=== PATIENT | female | born 1960 | race Two or more races ===

== ENCOUNTER 2024-08-13 23:44 | Emergency (ER) | payer OTHER ==
[~2024-08-13] VITALS: Ht 162.6 cm; Wt 117.9 kg
[~2024-08-13 23:44] MED LIST: GAS RELIEF125 M1 PO; JENTADUETO 2.51 EAC1 PO; JENTADUETO 2.51 EAC2; LOSARTAN-HCTZ1 EAC1 PO; NEURONTIN300 MG PO; OMEPRAZOLE20 MG PO; TARKA ER 2-2401 EACH; TARKA ER 2-2401 EACH PO; TOPROL XL50 M1; TOPROL XL50 M1 PO; TYLENOL ARTHRI650 MG PO; VITAMIN D10000 UNIT PO
[2024-08-13] MEDS ORDERED: NORVASC5 MG (23:48)
[2024-08-14] MEDS ORDERED: FAMOTIDINE/PF 20 MG/2 ML VIAL IV PUSH STA (00:37)
[2024-08-14] MEDS ORDERED: PROMETHAZINE HCL 50 MG/ML AMPUL IM STA (00:37)
[2024-08-14] MEDS ORDERED: 0.9 % SODIUM CHLORIDE 1,000 ML IV ONE (00:45)
[2024-08-14 01:18] LABS: HEMATOCRIT 40.3 % (36.0-45.00); HEMOGLOBIN 13.3 g/dL (12.0-15.00); MEAN CELL VOLUME 81.9 fL (80.00-100.00); PLATELET COUNT 253 K/uL (150-450); RED BLOOD COUNT 4.92 M/uL (4.00-6.00); RED CELL DISTRIBUTION WIDTH 15.1 % (11.5-14.5)
[2024-08-14 02:28] LABS: PH,URINE 5.5 (5.0-8.0); URINE APPEARANCE Clear; URINE BILIRRUBIN Negative (NEGATIVE); URINE BLOOD Negative; URINE COLOR Yellow; URINE GLUCOSE Negative (NEGATIVE); URINE KETONE Negative (NEGATIVE); URINE LEUKOCYTE Negative; URINE NITRATE Negative; URINE PROTEIN Negative (NEGATIVE); URINE UROBILINOGEN 0.2 E.U./dl
[2024-08-14 02:31] LABS: URINE EPITHELIAL CELLS 1.5 uL (0.0-38.8); URINE WBC 9.6 uL (0.0-23.2)
[2024-08-14 02:37] LABS: ALBUMIN 3.5 gm/dL (3.4-5.0); ALKALINE PHOSPHATASE 94 U/L (50-136); ALT/SGPT 24 U/L (12-78); AMYLASE 52 U/L (25-115); ANION GAP 11 (10.0-20.0); AST/SGOT 16 U/L (15-37); BILIRUBIN TOTAL 0.22 mg/dL (0.3-1.2); BILIRUBIN,CONJUGATED < 0.10 mg/dL (0.0-0.2); BILIRUBIN,UNCONJUGATED 0.12 mg/dL (0.0-0.6); BLOOD UREA NITROGEN 23 mg/dL (7-18); BUN CREA RATIO 26 (7.0-25.0); CALCIUM 9.5 mg/dL (8.5-10.1); CARBON DIOXIDE 26 mEq/L (21-32); CHLORIDE 109 mmol/L (98-107); CREATININE SERUM 0.87 mg/dL (0.55-1.02); GFR 65.97; GLOBULINA 3.8 G/DL (2.4-3.5); GLUCOSE FASTING 176 mg/dL (65-100); OSMOLALITY SERUM 291 MOSM/KG (275-295); POTASSIUM 4.19 mEq/L (3.5-5.1); SODIUM 142 mmol/L (136-145); TOTAL PROTEIN 7.3 gm/dL (6.4-8.2)
[2024-08-14 02:38] LABS: URINE BACTERIA 2.5 uL (0.0-1933); URINE CAST 0.15 uL (0.0-1.40); URINE RBC 1.5 uL (0.0-20.8)
[2024-08-14 02:44] LABS: LIPASE 52 U/L (13-75)
[2024-08-14 02:46] LABS: INR 0.95; PARTIAL THROMBOPLASTIN TIME 23.4 SECONDS (22.0-34.0); PROTHROMBIN TIME 9.9 SECONDS (9.0-11.5)
[2024-08-14] MEDS ORDERED: ZOFRAN8 MG PO (04:35)
[2024-08-14] MEDS ORDERED: PEPCID40 MG PO (04:35)
[2024-08-14] MEDS ORDERED: PROTONIX40 MG PO (04:35)
== END 2024-08-14 04:53 ==
LOC: ER 23:45
PROVIDERS: General Practice
DX: R10.13 Epigastric pain (principal); Z91.041 Radiographic dye allergy status; Z88.2 Allergy status to sulfonamides; E11.9 Type 2 diabetes mellitus without complications; Z79.84 Long term (current) use of oral hypoglycemic drugs; I10 Essential (primary) hypertension

== ENCOUNTER → 2025-02-16 | Emergency (ER) | payer OTHER ==
[~2025-02-16] VITALS: Ht 162.6 cm; Wt 120.2 kg
[~2025-02-16] MED LIST changes: +CEFTRIAXONE SODIUM 1,000 MG VIAL IM STA; +CEFTRIAXONE SODIUM 1,000 MG VIAL ONE; +LIDOCAINE HCL 1% 10ML VIAL ONE; +METHYLPREDNISOLONE SOD SUCC 125 MG VIAL IM STA; +METHYLPREDNISOLONE SOD SUCC 125 MG VIAL ONE; +NORVASC5 MG; +PEPCID40 MG PO; +PROTONIX40 MG PO; +WATER FOR INJ.,BACTERIOSTATIC 30 ML VIAL IJ ONE; +ZOFRAN8 MG PO
== END | disposition home or self-care (01) ==
LOC: ER 08:27
DX: J06.9 Acute upper respiratory infection, unspecified (principal); I10 Essential (primary) hypertension; Z91.041 Radiographic dye allergy status